=== PATIENT | male | born 1990 | race Caucasian/White ===

== ENCOUNTER 2018-04-01 16:02 | Inpatient (IN) | payer OTHER, SELFPAY ==
[2018-04-01] VITALS (7 sets, daily range): BP systolic 127–160; BP diastolic 75–81; PULSE 90–107; RESP 16–18; TEMP 36.9–40.1; O2SAT 96–99
--- NOTE | 2018-04-01 17:07 | W.ED.GENAD ---
Discharge Plan Disposition [facility] Condition: Serious Discharge Details Chief Complaint: Nausea/Vomit/Diar Clinical Impression: Type I diabetes mellitus, Pneumonia, Elevated troponin, MICHELLE (acute kidney injury) Reason For Visit: PNEUMONIA Admit Date/Time: 04/01/18 20:35 Admit Provider: David Hauser Attending Provider: David Hauser Primary Care Provider: KRISH FORTE ED Provider: Ayaan Boyle Discharge Data Discharge Date/Time-TO BE ENTERED AT DEPARTURE: 04/01/18 21:05 Medical Decision Making MDM Narrative Medical decision making narrative: Presents today with chief complaint of nausea vomiting and cough. Patient reports that he has been vomiting fairly regularly for the past 3 days. On exam, he appears dehydrated, fatigued. He does appear flush was currently afebrile. She is feelings of hot and cold at home. He is tachycardic at 107. Blood pressure is also noted to be elevated at 155/81. Patient reports that he has had elevation in his glucose since the onset of his symptoms. No change in bowel habits. On exam, his lungs are clear bilaterally. He is not tachypneic, no respiratory distress. Abdomen is soft and nondistended. Plan to obtain chest x-ray, laboratory evaluation. Nursing staff will assess glucose fingerstick. We will give IV hydration. Chest x-ray reviewed by radiologist. They advised significant airspace opacity in the lingula. No focal pathology the pleural space, no pneumothorax. Heart is without focal pathology, no cardiomegaly. Mediastinum is unremarkable. Internal fixation of the right clavicle in normal alignment. Advised significant airspace opacity in the lingula most consistent with pneumonia Vital signs are reassessed by nursing staff. At this time, his temp is at 40.1. His glucose is down to 96. Patient will be given 1000 mg of Tylenol. Will obtain blood cultures and then begin the patient on Levaquin. Discussed this with Dr. Simpson There was a delay in the laboratory evaluation secondary to the demands on the lab at the time from large quantities of your patients. However, CBC, CMP, troponin and lipase were obtained. WBC is 11.66 with a neutrophil count of 9.29. Lipase is normal at 83. Sodium is 128. 0.5. BUN Elevated at 46, Creatinine 1.74. Glucose Is 294. Troponin is elevated at 0.08. Will obtain EKG. Patient is asymptomatic for ACS. Concern is may be demand ischemia. EKG reviewed by Dr. Simpson, no acute ischemic changes noted Has received 2 L of fluid, is receiving antibiotics. Patient diagnosed with elevated troponin, pneumonia, acute kidney injury, and elevated glucose with type I diabetes. Plan to consult with the hospitalist regarding admission. Discussed the case with Dr. Holder who agrees to admission. We will continue to monitor the troponin. He feels this likely secondary to demand ischemia. Discussed plan for admission with the patient who voiced understanding and agrees with plan. HPI - General Adult General Mode of arrival: ambulatory. Date/Time Provider Initiated Documentation: 04/01/18 17:03. Limitations to Documentation: no limitations. Information obtained by: patient. HPI Narrative: Patient is a 27-year-old male, with history of diabetes, with chief complaint of nausea and vomiting. Patient reports that he initially began with cough and chest congestion 4 days ago. The following day, he developed nausea and vomiting. Reports that since then he has vomited every 1.5 hours. He denies any fevers or chills. Denies any abdominal pain. Denies any chest pain. Denies any shortness of breath. Reports that occasionally the vomiting seems to be associated with the cough and is having posttussive emesis. However, patient is also endorsing a underlying level of nausea and random episodes of emesis as well. Reports that typically his glucose is running between 1 and 200. States that since being ill it is which had been between 3 and 400. Patient does report that he has been elevated like this historically. Related Data Home Medications Medication Instructions Recorded Confirmed insulin aspart U-100 [Novolog 100 unit SQ pen 02/28/13 Flexpen] insulin glargine [Lantus Solostar] BID 02/28/13 pravastatin 40 mg PO DAILY #1 tab-cap 02/28/13 04/01/18 lisinopril 40 mg PO DAILY 04/01/18 04/01/18 Allergies Allergy/AdvReac Type Severity Reaction Status Date / Time No Known Allergies Allergy Unverified 04/01/18 16:14 General Stated Complaint: Nausea/Vomit/Diar RAMON: 3 Review of Systems Constitutional Reports as per HPI, Reports chills, Reports fatigue, Reports fever(s), Denies headache(s), Reports malaise and Reports poor appetite ENT Denies dysphagia, Denies vertigo, Denies dizziness and Denies headache(s) Cardiovascular Denies chest pain, Denies chest pain at rest, Denies chest pain with activity, Denies rapid heart rate, Denies pedal edema, Denies leg edema, Denies palpitations, Denies dyspnea and Denies dyspnea on exertion Respiratory Reports as per HPI, Reports chest congestion, Reports cough, Denies pain on inspiration, Denies pain with cough, Denies dyspnea, Denies dyspnea on exertion, Denies stridor and Denies wheezing Gastrointestinal Reports as per HPI, Denies abdominal pain, Denies change in bowel habits, Denies dysphagia, Reports nausea, Reports vomiting and Denies hematemesis Genitourinary Denies dysuria, Denies flank pain, Denies testicular mass, Denies testicular pain and Denies urinary frequency (reports that he has noted decreased frequency of urination, feels that this is associated with dehydration. ) Integumentary/Breasts Denies rash Neurologic Denies vertigo, Denies dizziness and Denies headache(s) Endocrine Reports fatigue and Denies palpitations Allergic/Immunologic Denies wheezing [facility] Social History Smoking/Tobacco Use Status: Never Exam Const General: cooperative, no acute distress, well developed, well groomed and ill appearing acutely (appears flushed and fatigued) [facility] Head: normal to inspection, normocephalic and atraumatic Ears: hearing grossly normal bilaterally Mouth: tongue normal and mucous membranes dry (dry) Throat: posterior oropharynx normal Eyes General: appearance normal, both eyes and all related structures Neck Neck: normal visual inspection and no lymphadenopathy Resp Effort & Inspection: normal respiratory effort, able to speak in complete sentences and no respiratory distress Auscultation: clear to auscultation bilaterally, no rales, no rhonchi and no wheezes Cardio Rate: regular rate Rhythm: regular rhythm Heart Sounds: S1 normal and S2 normal GI Inspection: normal to inspection, non-distended and no incisions Palpation: soft, no hepatosplenomegaly, no aortic enlargement, not firm, no guarding, not rigid and nontender Percussion: normal to percussion Auscultation: normal bowel sounds Back/Spine/Pelvis Back: no CVA tenderness Skin General skin exam: no rashes or lesions noted Neuro General: alert, awake and oriented x3 Cognition: normal cognition Speech: speech normal Gait: normal gait Motor: muscle tone normal throughout Extrem General: normal to inspection, no pedal edema, no calf tenderness and normal gait Psych Appearance: grossly normal and well kempt Mental Status: mental status grossly normal Speech and Movement: speech and movement normal Mood: congruent mood Affect: normal affect Course Vital Signs Temperature 36.9 C 04/01/18 16:10 Pulse 107 H 04/01/18 16:10 Respiratory Rate 18 04/01/18 16:10 Blood Pressure 155/81 H 04/01/18 16:10 Pulse Oximetry 96 04/01/18 16:10 Temperature 36.9 C 04/01/18 16:10 Pulse 107 H 04/01/18 16:10 Respiratory Rate 18 04/01/18 16:10 Blood Pressure 155/81 H 04/01/18 16:10 Pulse Oximetry 96 04/01/18 16:10
--- NOTE | 2018-04-01 17:17 | DI.RAD_ITS ---
SYMPTOM/DIAGNOSIS: COUGH PA AND LATERAL CHEST: No priors. Heart size and pulmonary vasculature are within normal limits. There is an air space opacity in the left lingula. The lungs are otherwise clear. No effusions or pneumothoraces are identified. There is a side plate and screws in the right clavicle. There are mild degenerative changes seen in the spine. IMPRESSION: Left lingular pneumonia.
--- NOTE | 2018-04-01 17:20 | ED.GENADUL_ITS ---
Discharge Plan Disposition Patient Disposition: [facility] IN[facility] Condition: Serious Discharge Details Chief Complaint: Nausea/Vomit/Diar Clinical Impression: Type I diabetes mellitus, Pneumonia, Elevated troponin, MICHELLE (acute kidney injury) Reason For Visit: PNEUMONIA Admit Date/Time: 04/01/18 20:35 Admit Provider: David Hauser Attending Provider: David Hauser Primary Care Provider: KRISH FORTE ED Provider: Ayana Boyle Discharge Data Discharge Date/Time-TO BE ENTERED AT DEPARTURE: 04/01/18 21:05 Medical Decision Making MDM Narrative Medical decision making narrative: Presents today with chief complaint of nausea vomiting and cough. Patient reports that he has been vomiting fairly regularly for the past 3 days. On exam , he appears dehydrated, fatigued. He does appear flush was currently afebrile. She is feelings of hot and cold at home. He is tachycardic at 107. Blood pressure is also noted to be elevated at 155/81. Patient reports that he has had elevation in his glucose since the onset of his symptoms. No change in bowel habits. On exam, his lungs are clear bilaterally. He is not tachypneic, no respiratory distress. Abdomen is soft and nondistended. Plan to obtain chest x-ray, laboratory evaluation. Nursing staff will assess glucose fingerstick. We will give IV hydration. Chest x-ray reviewed by radiologist. They advised significant airspace opacity in the lingula. No focal pathology the pleural space, no pneumothorax. Heart is without focal pathology, no cardiomegaly. Mediastinum is unremarkable. Internal fixation of the right clavicle in normal alignment. Advised significant airspace opacity in the lingula most consistent with pneumonia Vital signs are reassessed by nursing staff. At this time, his temp is at 40.1. His glucose is down to 96. Patient will be given 1000 mg of Tylenol. Will obtain blood cultures and then begin the patient on Levaquin. Discussed this with Dr. Simpson There was a delay in the laboratory evaluation secondary to the demands on the lab at the time from large quantities of your patients. However, CBC, CMP, troponin and lipase were obtained. WBC is 11.66 with a neutrophil count of 9.29. Lipase is normal at 83. Sodium is 128. 0.5. BUN Elevated at 46, Creatinine 1.74. Glucose Is 294. Troponin is elevated at 0.08. Will obtain EKG. Patient is asymptomatic for ACS. Concern is may be demand ischemia. EKG reviewed by Dr. Simpson, no acute ischemic changes noted Has received 2 L of fluid, is receiving antibiotics. Patient diagnosed with elevated troponin, pneumonia, acute kidney injury, and elevated glucose with type I diabetes. Plan to consult with the hospitalist regarding admission. Discussed the case with Dr. Holder who agrees to admission. We will continue to monitor the troponin. He feels this likely secondary to demand ischemia. Discussed plan for admission with the patient who voiced understanding and agrees with plan. HPI - General Adult General Mode of arrival: ambulatory . Date/Time Provider Initiated Documentation: 04/01/18 17:03 . Limitations to Documentation: no limitations . Information obtained by: patient . HPI Narrative: Patient is a 27-year-old male, with history of diabetes, with chief complaint of nausea and vomiting. Patient reports that he initially began with cough and chest congestion 4 days ago. The following day, he developed nausea and vomiting. Reports that since then he has vomited every 1.5 hours. He denies any fevers or chills. Denies any abdominal pain. Denies any chest pain. Denies any shortness of breath. Reports that occasionally the vomiting seems to be associated with the cough and is having posttussive emesis. However, patient is also endorsing a underlying level of nausea and random episodes of emesis as well. Reports that typically his glucose is running between 1 and 200. States that since being ill it is which had been between 3 and 400. Patient does report that he has been elevated like this historically. Related Data Home Medications Medication Instructions Recorded Confirmed insulin aspart U-100 [Novolog 100 unit SQ pen 02/28/13 Flexpen] insulin glargine [Lantus Solostar] BID 02/28/13 pravastatin 40 mg PO DAILY #1 tab-cap 02/28/13 04/01/18 lisinopril 40 mg PO DAILY 04/01/18 04/01/18 Allergies Allergy/AdvReac Type Severity Reaction Status Date / Time No Known Allergies Allergy Unverified 04/01/18 16:14 General Stated Complaint: Nausea/Vomit/Diar RAMON: 3 Review of Systems Constitutional Reports as per HPI, Reports chills, Reports fatigue, Reports fever(s), Denies headache(s), Reports malaise and Reports poor appetite ENT Denies dysphagia, Denies vertigo, Denies dizziness and Denies headache(s) Cardiovascular Denies chest pain, Denies chest pain at rest, Denies chest pain with activity, Denies rapid heart rate, Denies pedal edema, Denies leg edema, Denies palpitations, Denies dyspnea and Denies dyspnea on exertion Respiratory Reports as per HPI, Reports chest congestion, Reports cough, Denies pain on inspiration, Denies pain with cough, Denies dyspnea, Denies dyspnea on exertion , Denies stridor and Denies wheezing Gastrointestinal Reports as per HPI, Denies abdominal pain, Denies change in bowel habits, Denies dysphagia, Reports nausea, Reports vomiting and Denies hematemesis Genitourinary Denies dysuria, Denies flank pain, Denies testicular mass, Denies testicular pain and Denies urinary frequency (reports that he has noted decreased frequency of urination, feels that this is associated with dehydration. ) Integumentary/Breasts Denies rash Neurologic Denies vertigo, Denies dizziness and Denies headache(s) Endocrine Reports fatigue and Denies palpitations Allergic/Immunologic Denies wheezing [facility] Social History Smoking/Tobacco Use Status: Never Exam Const General: cooperative, no acute distress, well developed, well groomed and ill appearing acutely (appears flushed and fatigued) [facility] Head: normal to inspection, normocephalic and atraumatic Ears: hearing grossly normal bilaterally Mouth: tongue normal and mucous membranes dry (dry) Throat: posterior oropharynx normal Eyes General: appearance normal, both eyes and all related structures Neck Neck: normal visual inspection and no lymphadenopathy Resp Effort & Inspection: normal respiratory effort, able to speak in complete sentences and no respiratory distress Auscultation: clear to auscultation bilaterally, no rales, no rhonchi and no wheezes Cardio Rate: regular rate Rhythm: regular rhythm Heart Sounds: S1 normal and S2 normal GI Inspection: normal to inspection, non-distended and no incisions Palpation: soft, no hepatosplenomegaly, no aortic enlargement, not firm, no guarding, not rigid and nontender Percussion: normal to percussion Auscultation: normal bowel sounds Back/Spine/Pelvis Back: no CVA tenderness Skin General skin exam: no rashes or lesions noted Neuro General: alert, awake and oriented x3 Cognition: normal cognition Speech: speech normal Gait: normal gait Motor: muscle tone normal throughout Extrem General: normal to inspection, no pedal edema, no calf tenderness and normal gait Psych Appearance: grossly normal and well kempt Mental Status: mental status grossly normal Speech and Movement: speech and movement normal Mood: congruent mood Affect: normal affect Course Vital Signs Temperature 36.9 C 04/01/18 16:10 Pulse 107 H 04/01/18 16:10 Respiratory Rate 18 04/01/18 16:10 Blood Pressure 155/81 H 04/01/18 16:10 Pulse Oximetry 96 04/01/18 16:10 Temperature 36.9 C 04/01/18 16:10 Pulse 107 H 04/01/18 16:10 Respiratory Rate 18 04/01/18 16:10 Blood Pressure 155/81 H 04/01/18 16:10 Pulse Oximetry 96 04/01/18 16:10
[2018-04-01] MEDS: Normal Saline Flush 10 ML SYR IVP (18:10)
--- NOTE | 2018-04-01 18:10 | NUR.NOTE ---
To radiology with camera technician at 1808. PIV placed by MM, labs drawn. Mask applied to patient for recent cough and fever.Nursing Note:
[2018-04-01] MEDS: Normal Saline 1,000 ML 1000 ML IV ×2 (18:15→21:48)
[2018-04-01] MEDS: Ondansetron 4 MG/2 ML VIAL IVP (18:30)
--- NOTE | 2018-04-01 18:52 | DI.VRAD_ITS ---
EXAM: XR Chest, 2 Views CLINICAL HISTORY: 27 years old, male; Signs and symptoms; Cough TECHNIQUE: Frontal and lateral views of the chest. COMPARISON: No relevant prior studies available. FINDINGS: Lungs: Significant airspace opacity in the lingula. Pleural space: No focal pathology. No pneumothorax. Heart: No focal pathology. No cardiomegaly. Mediastinum: Unremarkable. Bones/joints: Internal fixation of the right clavicle in anatomic alignment. IMPRESSION: Significant airspace opacity in the lingula most consistent with pneumonia. Dictated and Authenticated by: Mariah Keller MD. Ordering:ECHO EWING MD
[2018-04-01 19:06] LABS: Abs Immature Grans 0.02 k/cumm (0.0-0.09); Absolute Basophil Count 0.05 k/cumm (0.0-0.2); Absolute Lymphocyte Count 1.13 k/cumm (1.2-3.4); Absolute Monocyte Count 1.17 k/cumm (0.11-0.7); Absolute Neutrophil Count 9.29 k/cumm (1.2-6.7); Basophils % 0.4; HCT 39.8 % (40.0-50.0); HGB 13.3 g/dL (13.5-17.5); Immature Grans % 0.2; Lymphocytes % 9.7; Mean Corp. HGB Concentration 33.4 g/dL (32.0-36.0); Mean Corpuscular Volume 83.8 fL (80-95); Mean Platelet Volume 10.6 fL (8.0-11.0); Neutrophils % 79.7; Platelet Count 243 x1000/uL (130-400); RBC 4.75 m/cumm (4.50-6.00); RBC Distribution Width 12.7 % (11.8-14.1); White Blood Cell Count 11.66 k/cumm (4.4-10.8)
[2018-04-01] MEDS: Acetaminophen 500 MG TAB 1000 MG PO (19:10)
[2018-04-01 19:35] LABS: ALT 45 U/L (12-78); AST 30 U/L (15-37); Albumin 3.4 g/dL (3.4-5.0); Alkaline Phosphatase 83 U/L (46-116); Anion Gap 11.5 mmol/L (3-11); BUN 46 mg/dL (7-18); Bilirubin, Total 0.7 mg/dL (0.2-1.0); CO2 25.5 mmol/L (21.0-32.0); CREATININE 1.74 mg/dL (0.70-1.30); Calcium 8.7 mg/dL (8.5-10.1); Chloride 91 mmol/L (98-107); Estimated GFR 48.05 (mL/min/1.73m2); Glucose 294 mg/dL (70-100); Potassium 4.1 mmol/L (3.5-5.1); Sodium 128 mmol/L (136-145); Total Protein 7.8 g/dL (6.4-8.2)
[2018-04-01 19:39] LABS: Lipase 83 U/L (73-393); Magnesium 1.7 mg/dL (1.8-2.4)
[2018-04-01 19:43] LABS: Troponin I 0.08 ng/mL (0.00-0.06)
[2018-04-01 19:50] LABS: Bilirubin Negative (Negative); Blood Moderate (Negative); Clarity Clear; Glucose 500 mg/dL (Negative); Ketones 40 mg/dL (Negative); Leukocyte Esterase Negative (Negative); Nitrite Negative (Negative); Urobilinogen 0.2 EU/dL (Up TO 0.2); pH 5.5 (5-8)
[2018-04-01 20:24] LABS: Bacteria Rare HPF (Negative); Epithelial Cells Few HPF (Negative); Mucus Trace (Negative); WBC 0-2 HPF (0-5)
[2018-04-01] MEDS: LEVOFLOXACIN 750 MG/150 ML BAG 150 MG IVPB (20:24)
[2018-04-01 20:25] LABS: C & S Indicated? No; Casts 0-2 Hyaline LPF (Negative)
--- NOTE | 2018-04-01 20:44 | W.PM.HP.N ---
Date of service: 04/01/18 Time of Service: 20:45 Assessment and Plan (1) Pneumonia: Current visit: Yes Status: Acute Evidence of opacity by chest xray consistent with pneumonia, in patient with subjective and documented fevers, respiratory symptoms, leukocytosis, hyperglycemia, and recent ill contacts. Patient reports no recent antibiotic use or hospitalizations. Start Levaquin - despite MICHELLE creatinine clearance is still calculated at full antibiotic dosing. Continue IVFs, check blood and sputum culture, and monitor closely. (2) Elevated troponin: Current visit: Yes Status: Acute Minimal elevation in troponin - EKG reviewed and non-ischemic. Patient also asymptomatic. May be demand ischemia in setting of acute illness and lack of clearance due to MICHELLE. Will rule out with serial cardiac biomarkers, maintain on telemetry, and check ECHO in the morning. Monitor symptoms closely. (3) Type I diabetes mellitus: Current visit: Yes Status: Chronic Elevated blood sugars in the setting of acute febrile illness. Continue basal insulin and initiate sliding scale coverage. ADA diet. Monitor blood sugars closely and adjust insulin as needed. (4) Dyslipidemia: Current visit: Yes Status: Chronic Continue statin therapy. (5) Hypertension: Current visit: Yes Status: Chronic Hold RAMEZ-I in setting of MICHELLE. Monitor blood pressure. (6) Hyponatremia: Current visit: Yes Status: Acute Initial value of 128, corrected to 133. Along with hypochloremia, elevated BUN and creatinine, as well as history of decreased oral intake and fevers likely represents hypovolemic hyponatremia. Hydrate and monitor sodium. (7) MICHELLE (acute kidney injury): Current visit: Yes Status: Acute Along with hypochloremia, elevated BUN and creatinine, as well as history of decreased oral intake and fevers likely represents prerenal etiology / dehydration. Continue IVFs and monitor creatinine and renal panel closely. (8) DVT prophylaxis: Current visit: Yes Status: Acute SC Heparin. History of Present Illness Chief Complaint: Fever, Cough Narrative: 27 year gentleman with a PMHx significant for Type I DM, not well controlled, who presents to [facility] emergency department with complaints of fever and cough. Mr. Grant reportedly began having symptoms of a 'chest cold' 2 days ago, which then progressed to include a worsening cough, subjective fevers and chills, nausea with concurrent vomiting. Further questioning also revealed elevated blood sugars at home and decreased oral intake. Work-up in the emergency department showed evidence of a pneumonia by chest x-ray, elevated creatinine, and a mild leukocytosis. The patient also had evidence of mild hyponatremia (corrected to 133) and hypochloremia, along with an elevated BUN to Creatinine ratio. His Troponin was mildly elevated at 0.08. Given the above findings decision was made to admit the patient for further evaluation and treatment. Review of Systems Constitutional Reports as per HPI, Reports chills, Reports fatigue, Reports fever(s) and Reports malaise Cardiovascular Reports chest pain (Chest Pain with coughing only), Reports diaphoresis, Denies rapid heart rate, Denies edema, Denies irregular heart rhythm and Denies leg edema Respiratory Reports cough and Denies hemoptysis Gastrointestinal Reports abdominal pain (Attributed to cough), Reports nausea and Reports vomiting Genitourinary Denies difficulty urinating and Denies dysuria Endocrine Reports fatigue PFSH Social History Smoking/Tobacco Use Status: Never Meds Home Medications Medication Instructions Recorded Confirmed Type insulin aspart U-100 [Novolog 100 unit SQ pen 02/28/13 History Flexpen] insulin glargine [Lantus Solostar] BID 02/28/13 History pravastatin 40 mg PO DAILY #1 tab-cap 02/28/13 04/01/18 History lisinopril 40 mg PO DAILY 04/01/18 04/01/18 History Allergies Allergy/AdvReac Type Severity Reaction Status Date / Time No Known Allergies Allergy Unverified 04/01/18 16:14 Exam Const General: cooperative and ill appearing Orientation: oriented x3, oriented to person, oriented to place and oriented to time Neck Neck: supple Resp Effort & Inspection: normal respiratory effort and cough Auscultation: clear to auscultation bilaterally Cardio Rate: tachycardic Heart Sounds: S1 normal, S2 normal, no gallops, no murmurs and no rubs GI Inspection: normal to inspection Palpation: soft, not firm, not rigid and nontender Auscultation: normal bowel sounds Neuro General: alert, awake, oriented x3 and CN's II-XI intact bilaterally Extrem General: no edema Results Imaging Chest x-ray: report reviewed Imaging Studies: EXAM: XR Chest, 2 Views CLINICAL HISTORY: 27 years old, male; Signs and symptoms; Cough TECHNIQUE: Frontal and lateral views of the chest. COMPARISON: No relevant prior studies available. FINDINGS: Lungs: Significant airspace opacity in the lingula. Pleural space: No focal pathology. No pneumothorax. Heart: No focal pathology. No cardiomegaly. Mediastinum: Unremarkable. Bones/joints: Internal fixation of the right clavicle in anatomic alignment. IMPRESSION: Significant airspace opacity in the lingula most consistent with pneumonia. Labs : 04/01/18 18:10 04/01/18 18:10 Laboratory Results - last 24 hr 04/01/18 04/01/18 04/01/18 18:10 18:10 18:10 WBC 11.66 H RBC 4.75 Hgb 13.3 L Hct 39.8 L MCV 83.8 MCH 28.0 MCHC 33.4 RDW 12.7 Plt Count 243 MPV 10.6 Immature Gran % 0.2 Neutrophils % 79.7 Lymphocytes % 9.7 Monocytes % 10.0 Eosinophils % 0.0 Basophils % 0.4 Absolute Neutrophils 9.29 H Absolute Lymphocytes 1.13 L Absolute Monocytes 1.17 H Absolute Eosinophils 0.00 Absolute Basophils 0.05 Sodium 128 L Potassium 4.1 Chloride 91 L Carbon Dioxide 25.5 Anion Gap 11.5 H BUN 46 H Creatinine 1.74 H Estimated GFR/1.73 m2 48.05 Glucose 294 H Calcium 8.7 Magnesium 1.7 L Total Bilirubin 0.7 AST 30 ALT 45 Alkaline Phosphatase 83 Troponin I 0.08 H Total Protein 7.8 Albumin 3.4 Lipase 83 Urine Color Urine Clarity Urine pH Ur Specific [place] Urine Protein Urine Ketones Urine Blood Urine Nitrite Urine Bilirubin Urine Urobilinogen Ur Leukocyte Esterase Urine RBC Urine WBC Ur Epithelial Cells Urine Crystals Urine Bacteria Urine Casts Urine Mucus Ur Culture Indicated? Urine Glucose 04/01/18 19:35 WBC RBC Hgb Hct MCV MCH MCHC RDW Plt Count MPV Immature Gran % Neutrophils % Lymphocytes % Monocytes % Eosinophils % Basophils % Absolute Neutrophils Absolute Lymphocytes Absolute Monocytes Absolute Eosinophils Absolute Basophils Sodium Potassium Chloride Carbon Dioxide Anion Gap BUN Creatinine Estimated GFR/1.73 m2 Glucose Calcium Magnesium Total Bilirubin AST ALT Alkaline Phosphatase Troponin I Total Protein Albumin Lipase Urine Color Yellow Urine Clarity Clear Urine pH 5.5 Ur Specific [place] 1.010 Urine Protein 30 H Urine Ketones 40 H Urine Blood Moderate H Urine Nitrite Negative Urine Bilirubin Negative Urine Urobilinogen 0.2 Ur Leukocyte Esterase Negative Urine RBC 3-5 H Urine WBC 0-2 Ur Epithelial Cells Few Urine Crystals Urine Bacteria Rare Urine Casts 0-2 hyaline Urine Mucus Trace Ur Culture Indicated? No Urine Glucose 500 H
[2018-04-01] MEDS: Normal Saline 1,000 ML 150 ML IV (22:37)
[2018-04-01] MEDS: Heparin 5,000 UNITS/ML VIAL 5000 UNITS SC (22:37)
[2018-04-01] MEDS: MAGNESIUM SULFATE 1 GM/100 ML BAG IVPB (22:37)
[2018-04-01 22:50] LABS: Troponin I 0.12 ng/mL (0.00-0.06)
[2018-04-01] MEDS: Insulin Glargine 300 UNITS/3 ML PEN 30 UNITS SC (23:43)
[2018-04-02] VITALS (14 sets, daily range): BP systolic 128–158; BP diastolic 66–97; PULSE 80–96; RESP 15–24; TEMP 37.1–39.5; O2SAT 94–98
[2018-04-02] MEDS: Acetaminophen 325 MG TAB PO ×4 (03:30→19:22)
[2018-04-02] MEDS: Heparin 5,000 UNITS/ML VIAL 5000 UNITS SC ×3 (05:48→21:40)
[2018-04-02 06:59] LABS: Abs Immature Grans 0.02 k/cumm (0.0-0.09); Absolute Basophil Count 0.04 k/cumm (0.0-0.2); Absolute Lymphocyte Count 1.26 k/cumm (1.2-3.4); Absolute Monocyte Count 1.06 k/cumm (0.11-0.7); Basophils % 0.4; HCT 37.4 % (40.0-50.0); HGB 12.8 g/dL (13.5-17.5); Immature Grans % 0.2; Lymphocytes % 11.4; Mean Corp. HGB Concentration 34.2 g/dL (32.0-36.0); Mean Corpuscular Hemoglobin 28.7 pg (27.0-33.0); Mean Corpuscular Volume 83.9 fL (80-95); Mean Platelet Volume 10.4 fL (8.0-11.0); Monocytes % 9.6; Neutrophils % 78.4; Platelet Count 223 x1000/uL (130-400); RBC 4.46 m/cumm (4.50-6.00); RBC Distribution Width 12.6 % (11.8-14.1); White Blood Cell Count 11.06 k/cumm (4.4-10.8)
[2018-04-02 07:01] LABS: Absolute Neutrophil Count 8.67 k/cumm (1.2-6.7)
[2018-04-02 07:09] LABS: Anion Gap 12.4 mmol/L (3-11); BUN 39 mg/dL (7-18); CO2 22.6 mmol/L (21.0-32.0); CREATININE 1.67 mg/dL (0.70-1.30); Calcium 8.1 mg/dL (8.5-10.1); Chloride 97 mmol/L (98-107); Estimated GFR 50.38 (mL/min/1.73m2); Glucose 317 mg/dL (70-100); Potassium 4.3 mmol/L (3.5-5.1); Sodium 132 mmol/L (136-145)
[2018-04-02 07:22] LABS: Troponin I 0.28 ng/mL (0.00-0.06)
--- NOTE | 2018-04-02 07:30 | MERGE_ITS ---
*[facility]* *[facility]* [address] [place] [address] Date of study: 04/02/2018 Transthoracic Echocardiography M-mode, complete 2D, complete spectral Doppler, and color Doppler *STUDY CONCLUSIONS* Summary: 1. Left ventricle: The cavity size was normal. Wall thickness was normal. Systolic function was normal. The estimated ejection fraction was 60-65%. Wall motion was normal; there were no regional wall motion abnormalities. Diastolic parameters were normal. 2. Right ventricle: The cavity size was normal. Wall thickness was normal. Systolic function was normal. *PATIENT PRESENTATION* Height: 172.7cm ((68in) ) S/D Pressure: 145 / 81 Weight: 103.9kg ((228.5lb) ) BSA: 2.27m^2 Test start time: 07:40 AM. Test stop time: 08:50 AM. PERFORMING Unknown ORDERING David Hauser REFERRING David Hauser PERFORMING [facility] ARCHIVIST ECONOMIC HISTORY RT Rober (Sina)(STAR), CATHI *PROCEDURE DATA* Procedure information: The patient was identified by two identifiers. This study was interpreted by [facility]. Pertinent images and digital data are archived for permanent storage and are available for subsequent review. No prior study was available for comparison. Study status: STAT. Transthoracic echocardiography. M-mode, complete 2D, complete spectral Doppler, and color Doppler. A Transthoracic Echocardiogram was performed. Scanning was performed from the parasternal, apical, subcostal, and suprasternal notch acoustic windows. Images were obtained using an [id number] cardiac ultrasound machine. Image quality was adequate. Study completion: The patient tolerated the procedure well. There were no complications. *CARDIAC ANATOMY* Left ventricle: The cavity size was normal. Wall thickness was normal. Systolic function was normal. The estimated ejection fraction was 60-65%. Wall motion was normal; there were no regional wall motion abnormalities. Diastolic parameters were normal. Aortic valve: Trileaflet; normal thickness leaflets. Mobility was not restricted. Doppler: Transvalvular velocity was within the normal range. There was no stenosis. There was no significant regurgitation. VTI ratio of LVOT to aortic valve: 0.94. Valve area (VTI): 2.9cm^2. Indexed valve area (VTI): 1.3cm^2/m^2. Peak velocity ratio of LVOT to aortic valve: 0.85. Valve area (Vmax): 2.7cm^2. Indexed valve area (Vmax): 1.2cm^2/m^2. Mean velocity ratio of LVOT to aortic valve: 0.88. Valve area (Vmean): 2.7cm^2. Indexed valve area (Vmean): 1.2cm^2/m^2. Mean gradient (S): 9.5mm Hg. Peak gradient (S): 15mm Hg. Aorta: Aortic root: The aortic root was normal in size. Ascending aorta: The ascending aorta was normal in size. Mitral valve: Structurally normal valve. Mobility was not restricted. Doppler: Transvalvular velocity was within the normal range. There was no evidence for stenosis. There was trivial regurgitation. Valve area by pressure half-time: 5.5cm^2. Indexed valve area by pressure half-time: 2.4cm^2/m^2. Peak gradient (D): 4.9mm Hg. Left atrium: The atrium was normal in size. Right ventricle: The cavity size was normal. Wall thickness was normal. Systolic function was normal. Pulmonic valve: Structurally normal valve. Doppler: Transvalvular velocity was within the normal range. There was no evidence for stenosis. There was no significant regurgitation. Peak gradient (S): 6.7mm Hg. Tricuspid valve: Structurally normal valve. Doppler: Transvalvular velocity was within the normal range. There was no evidence for stenosis. There was trivial regurgitation. Pulmonary artery: Pulmonary systolic pressure was within the normal range, in the range of 30mm Hg to 35mm Hg. Right atrium: The atrium was normal in size. Pericardium: There was no pericardial effusion. Systemic veins: Inferior vena cava: Well visualized. The vessel was patent and normal in size. The respirophasic diameter changes were in the normal range (greater than or equal to 50%). Baseline ECG: Normal sinus rhythm. Measurements Left ventricle Value Reference LV ID, ED, PLAX 5.3 cm 3.5 - 6.0 LV ID, ES, PLAX 3.6 cm 2.1 - 4.0 LV PW thickness, ED, PLAX 0.9 cm LV end-diastolic volume, 1-p A2C 94 ml LV ejection fraction, 1-p A2C 61 % LV end-diastolic volume, 1-p A4C 118 ml LV ejection fraction, 1-p A4C 61 % LV e', lateral 0.121 m/sec LV E/e', lateral 9 LV e', medial 0.084 m/sec LV E/e', medial 13 LV e', average 0.103 m/sec LV E/e', average 11 Ventricular septum Value Reference IVS thickness, ED, PLAX 1.0 cm LVOT Value Reference LVOT ID, A-P 2.0 cm LVOT area 3.1 cm^2 LVOT peak velocity, S 1.65 m/sec LVOT mean velocity, S 1.3 m/sec LVOT VTI, S 34.6 cm LVOT peak gradient, S 10.9 mm Hg LVOT mean gradient, S 7.3 mm Hg Stroke volume (SV), LVOT DP 108 ml Stroke index (SV/bsa), LVOT DP 47 ml/m^2 Aortic valve Value Reference Aortic valve peak velocity, S 1.9 m/sec Aortic valve mean velocity, S 1.47 m/sec Aortic valve VTI, S 36.7 cm Aortic mean gradient, S 9.5 mm Hg Aortic peak gradient, S 15 mm Hg VTI ratio, LVOT/AV 0.94 Aortic valve area, VTI 2.9 cm^2 Velocity ratio, peak, LVOT/AV 0.85 Aortic valve area, peak velocity 2.7 cm^2 Velocity ratio, mean, LVOT/AV 0.88 Aortic valve area, mean velocity 2.7 cm^2 Aortic valve area/bsa, mean velocity 1.2 cm^2/m^2 Aorta Value Reference Aortic root ID, ED 3.3 cm Ascending aorta ID, A-P, S 2.9 cm RVOT Value Reference RVOT VTI, S 16.4 cm Left atrium Value Reference LA ID, A-P, ES 3.6 cm LA ID/bsa, A-P 1.6 cm/m^2 <=2.2 LA area, ES, A4C 16.5 cm^2 8.8 - 23.4 LA area, ES, A2C 14 cm^2 LA volume/bsa, ES, 1-p A4C 21 ml/m^2 LA volume, ES, 2-p 36 ml LA volume/bsa, ES, 2-p 16 ml/m^2 LA/aortic root ratio 1.07 Mitral valve Value Reference Mitral E-wave peak velocity 1.11 m/sec Mitral A-wave peak velocity 0.75 m/sec Mitral deceleration time (L) 138 ms 150 - 230 Mitral pressure half-time 40 ms Mitral peak gradient, D 4.9 mm Hg Mitral E/A ratio, peak 1.48 Mitral valve area, PHT, DP 5.5 cm^2 Pulmonary veins Value Reference Pulmonary vein peak velocity, S 0.51 m/sec Pulmonary vein peak velocity, D 0.68 m/sec Pulmonary vein velocity ratio, peak, 0.75 S/D Tricuspid valve Value Reference Tricuspid regurg peak velocity 2.9 m/sec Tricuspid peak RV-RA gradient 34.4 mm Hg Right atrium Value Reference RA area, ES, A4C 12.4 cm^2 8.3 - 19.5 Pulmonic valve Value Reference Pulmonic peak gradient, S 6.7 mm Hg Legend: (L) and (H) emanuel values outside specified reference range. I have personally reviewed the images and have reviewed and edited the reported findings. Electronically signed by Niko Martinez 04/02/2018 11:47
[2018-04-02] MEDS: Normal Saline Flush 10 ML SYR IVP (09:24)
[2018-04-02] MEDS: Pravastatin 40 MG TAB PO (09:24)
[2018-04-02] MEDS: Insulin Glargine 300 UNITS/3 ML PEN 30 UNITS SC ×2 (09:28→20:27)
[2018-04-02] MEDS: Metoclopramide 10 MG/2 ML VIAL IVP (10:08)
[2018-04-02] MEDS: Insulin Aspart 300 UNITS/3 ML PEN SC ×4 (10:13→17:08)
--- NOTE | 2018-04-02 14:21 | DM INPTCON_ITS ---
DESCRIPTION/ASSESSMENT: Appreciate diabetes consult for Mr. Grant who is hospitalized with Pneumonia. He has type 1 diabetes currently treated with 30u Lantus twice daily and moderate insulin correction. BMI 35 No current A1c available but 1 year ago it was 7.6. Visited with him briefly to assess his mealtime insulin regimen. States he takes 1 unit for 5 grams carbohydrate in addition to insulin correction that I did not clarify with him. INTERVENTION: Suggest insulin:carb with meals at 1 unit covers 5 grams to prevent food induced hyperglycemia. Will f/u tomorrow when he is feeling better. PLAN: Will follow blood sugars
[2018-04-02 14:29] LABS: Troponin I 0.31 ng/mL (0.00-0.06)
--- NOTE | 2018-04-02 14:36 | PGE_ITS ---
Date of service: 04/02/18 Time of Service: 14:34 Assessment and Plan (1) Pneumonia: Current visit: Yes Status: Acute Patient has evidence of a left lingular pneumonia. He remains febrile this afternoon with a temperature of 38.5. However he is only received 1 dose of Levaquin 750 mg IV last night. He is scheduled for his next dose of Levaquin at 8:00 tonight. He continues to have elevated troponin levels although they have not reached the threshold for myocardial infarction. His EKGs are more suggestive of a pericarditis. His echocardiogram showed normal left ventricular function and no pericardial effusion. We will continue to treat the patient with IV Levaquin along with as needed aerosolized bronchodilators and pulmonary toiletry with Acapella and incentive spirometry Patient indicated to me that he has not had a Pneumovax vaccine. I think before he leaves the hospital he should receive Prevnar followed by Pneumovax in 6-12 months. (2) Elevated troponin: Current visit: Yes Status: Acute I suspect that the patient either has pericarditis associated with his pneumonia or he may have a myocarditis. In either case his left ventricular function is normal. I will continue to trend out his troponins until they have plateaued and are declining. (3) MICHELLE (acute kidney injury): Current visit: Yes Status: Acute His acute kidney injury appears to be improving with IV fluid hydration. His creatinine is now back to his baseline of 1.6. (4) Hyponatremia: Current visit: Yes Status: Acute His hyponatremia is improving with IV fluid hydration. He remains on normal saline at 150 mL/h (5) Type I diabetes mellitus: Current visit: Yes Status: Chronic Blood sugars remain elevated running between 220-270. JADEN Morales, recommended adding an insulin to carb ratio coverage 1-5 to treat hyperglycemia associated with meal coverage. He is currently on Lantus 30 units twice a day for basal insulin coverage along with moderate dose NovoLog sliding scale to treat elevated blood sugars. (6) Hypertension: Current visit: Yes Status: Chronic Patient was previously on lisinopril 40 mg daily however this is been held because of his acute renal insufficiency. His blood pressures have not been elevated today. I will continue to withhold his lisinopril until we see where his new baseline creatinine settles out. Once he is well hydrated we can restart his lisinopril (7) Dyslipidemia: Current visit: Yes Status: Chronic Patient's pravastatin has been resumed (8) DVT prophylaxis: Current visit: Yes Status: Acute Continue subcutaneous heparin for DVT prophylaxis until the patient is more physically active and ambulatory Subjective Patient reports: nausea and fever; denies shortness of breath Interval history since last seen: Patient is a 27-year-old male with type 1 diabetes mellitus who presented to the emergency department with productive cough and fever and chills along with nausea and vomiting. Onset of symptoms was last Monday which was 3 days ago after being exposed to some friends who had been ill with respiratory symptoms. Workup last night included chest x-ray that showed a left lingular pneumonia. Laboratory studies showed acute on chronic renal insufficiency with elevated creatinine 1.74 which has since been declining down to 1.67 with IV fluid hydration. His baseline creatinine is 1.6 from 2015. Furthermore he was found to have an elevated troponin level of 0.08 on admission and his since risen up to 0.31 this afternoon. EKG on admission showed sinus tachycardia rate of 100 bpm with nonspecific intraventricular conduction delay and diffuse ST repolarization changes and mild diffusely depressed TX intervals. In AVR there were reciprocal changes including TX elevation and T-wave inversion. Blood cultures were obtained and the patient was placed on IV Levaquin. Patient states that he is feeling somewhat better today and that his shortness of breath is improved and his cough is improved. However he still running a fever today up to 38.5 this afternoon. His temp was as high as 40.1 last night. Echocardiogram was performed today and showed normal left ventricular size and normal left ventricular systolic function with an ejection fraction of 60-65%. There is no pericardial effusion. Exam Const General: cooperative, well developed and ill appearing acutely Nutritional Appearance: average body habitus Orientation: alert, awake and oriented x3 Neck Neck: normal visual inspection, full ROM, no lymphadenopathy and no JVD Carotids: normal carotid upstroke Resp Effort & Inspection: normal respiratory effort and able to speak in complete sentences Auscultation: bronchovesicular breath sounds bilaterally and crackles bilaterally Cardio Jugular venous pressure: no JVD Palpation: normal PMI Rate: regular rate Rhythm: regular rhythm Heart Sounds: S1 normal, S2 normal, no gallops, no murmurs and no rubs Bruits: no abdominal aortic bruits and no carotid bruits GI Inspection: normal to inspection Palpation: soft, no hepatosplenomegaly and no guarding Percussion: normal to percussion Auscultation: normal bowel sounds Rectal Exam: deferred Neuro General: alert, awake, oriented x3 and moves all extremities Cognition: normal cognition Speech: speech normal Motor: muscle tone normal throughout and strength 5/5 throughout Extrem General: normal to inspection, full ROM, normal capillary refill and no clubbing , cyanosis or edema Psych Appearance: grossly normal Mental Status: mental status grossly normal Speech and Movement: speech and movement normal Mood: congruent mood Affect: normal affect Attitude: cooperative Thought Process: normal Thought Content: normal Insight: insight good Judgment: judgment good Objective Objective Clinical Data: Abnormal lab results 04/01/18 04/01/18 04/01/18 Range/Units 18:10 18:10 18:10 WBC 11.66 H (4.4-10.8) k/cumm RBC (4.50-6.00) m/cumm Hgb 13.3 L (13.5-17.5) g/dL Hct 39.8 L (40.0-50.0) % Absolute Neutrophils 9.29 H (1.2-6.7) k/cumm Absolute Lymphocytes 1.13 L (1.2-3.4) k/cumm Absolute Monocytes 1.17 H (0.11-0.7) k/cumm Sodium 128 L (136-145) mmol/L Chloride 91 L (98-107) mmol/L Anion Gap 11.5 H (3-11) mmol/L BUN 46 H (7-18) mg/dL Creatinine 1.74 H (0.70-1.30) mg/dL Glucose 294 H (70-100) mg/dL Calcium (8.5-10.1) mg/dL Magnesium 1.7 L (1.8-2.4) mg/dL Troponin I 0.08 H (0.00-0.06) ng/mL Urine Protein (Negative) mg/dL Urine Ketones (Negative) mg/dL Urine Blood (Negative) Urine RBC (0-2) Urine Glucose (Negative) mg/dL 04/01/18 04/01/18 04/02/18 Range/Units 19:35 22:20 06:20 WBC (4.4-10.8) k/cumm RBC (4.50-6.00) m/cumm Hgb (13.5-17.5) g/dL Hct (40.0-50.0) % Absolute Neutrophils (1.2-6.7) k/cumm Absolute Lymphocytes (1.2-3.4) k/cumm Absolute Monocytes (0.11-0.7) k/cumm Sodium (136-145) mmol/L Chloride (98-107) mmol/L Anion Gap (3-11) mmol/L BUN (7-18) mg/dL Creatinine (0.70-1.30) mg/dL Glucose (70-100) mg/dL Calcium (8.5-10.1) mg/dL Magnesium (1.8-2.4) mg/dL Troponin I 0.12 H 0.28 H (0.00-0.06) ng/mL Urine Protein 30 H (Negative) mg/dL Urine Ketones 40 H (Negative) mg/dL Urine Blood Moderate H (Negative) Urine RBC 3-5 H (0-2) Urine Glucose 500 H (Negative) mg/dL 04/02/18 04/02/18 04/02/18 Range/Units 06:20 06:20 14:06 WBC 11.06 H (4.4-10.8) k/cumm RBC 4.46 L (4.50-6.00) m/cumm Hgb 12.8 L (13.5-17.5) g/dL Hct 37.4 L (40.0-50.0) % Absolute Neutrophils 8.67 H (1.2-6.7) k/cumm Absolute Lymphocytes (1.2-3.4) k/cumm Absolute Monocytes 1.06 H (0.11-0.7) k/cumm Sodium 132 L (136-145) mmol/L Chloride 97 L (98-107) mmol/L Anion Gap 12.4 H (3-11) mmol/L BUN 39 H (7-18) mg/dL Creatinine 1.67 H (0.70-1.30) mg/dL Glucose 317 H (70-100) mg/dL Calcium 8.1 L (8.5-10.1) mg/dL Magnesium (1.8-2.4) mg/dL Troponin I 0.31 H (0.00-0.06) ng/mL Urine Protein (Negative) mg/dL Urine Ketones (Negative) mg/dL Urine Blood (Negative) Urine RBC (0-2) Urine Glucose (Negative) mg/dL Vital Signs Temp 37.1 C 04/02/18 11:20 Pulse 96 H 04/02/18 11:20 Resp 22 04/02/18 11:20 BP 128/72 04/02/18 11:20 Pulse Ox 94 L 04/02/18 11:20 Intake & Output 04/01/18 04/02/18 04/02/18 23:59 11:59 23:59 Intake Total 1130 / 1130 0 / 0 Balance 1130 / 1130 0 / 0 Weight 104.326 kg Intake: IV Oral 1120 / 1120 0 / 0 Other: Stool Characteristics Formed Emesis Description Bile Voiding Methods Toilet Laboratory Results WBC 11.06 k/cumm (4.4-10.8) H 04/02/18 06:20 RBC 4.46 m/cumm (4.50-6.00) L 04/02/18 06:20 Hgb 12.8 g/dL (13.5-17.5) L 04/02/18 06:20 Hct 37.4 % (40.0-50.0) L 04/02/18 06:20 MCV 83.9 fL (80-95) 04/02/18 06:20 MCH 28.7 pg (27.0-33.0) 04/02/18 06:20 MCHC 34.2 g/dL (32.0-36.0) 04/02/18 06:20 RDW 12.6 % (11.8-14.1) 04/02/18 06:20 Plt Count 223 x1000/uL (130-400) 04/02/18 06:20 MPV 10.4 fL (8.0-11.0) 04/02/18 06:20 Immature Gran % 0.2 04/02/18 06:20 Neutrophils % 78.4 04/02/18 06:20 Lymphocytes % 11.4 04/02/18 06:20 Monocytes % 9.6 04/02/18 06:20 Eosinophils % 0.0 04/02/18 06:20 Basophils % 0.4 04/02/18 06:20 Absolute Neutrophils 8.67 k/cumm (1.2-6.7) H 04/02/18 06:20 Absolute Lymphocytes 1.26 k/cumm (1.2-3.4) 04/02/18 06:20 Absolute Monocytes 1.06 k/cumm (0.11-0.7) H 04/02/18 06:20 Absolute Eosinophils 0.00 k/cumm (0.0-0.7) 04/02/18 06:20 Absolute Basophils 0.04 k/cumm (0.0-0.2) 04/02/18 06:20 Sodium 132 mmol/L (136-145) L 04/02/18 06:20 Potassium 4.3 mmol/L (3.5-5.1) 04/02/18 06:20 Chloride 97 mmol/L (98-107) L 04/02/18 06:20 Carbon Dioxide 22.6 mmol/L (21.0-32.0) 04/02/18 06:20 Anion Gap 12.4 mmol/L (3-11) H 04/02/18 06:20 BUN 39 mg/dL (7-18) H 04/02/18 06:20 Creatinine 1.67 mg/dL (0.70-1.30) H 04/02/18 06:20 Estimated GFR/1.73 m2 50.38 (mL/min/1.73m2) 04/02/18 06:20 Glucose 317 mg/dL (70-100) H 04/02/18 06:20 Calcium 8.1 mg/dL (8.5-10.1) L 04/02/18 06:20 Magnesium 1.7 mg/dL (1.8-2.4) L 04/01/18 18:10 Total Bilirubin 0.7 mg/dL (0.2-1.0) 04/01/18 18:10 AST 30 U/L (15-37) 04/01/18 18:10 ALT 45 U/L (12-78) 04/01/18 18:10 Alkaline Phosphatase 83 U/L (46-116) 04/01/18 18:10 Troponin I 0.31 ng/mL (0.00-0.06) H 04/02/18 14:06 Total Protein 7.8 g/dL (6.4-8.2) 04/01/18 18:10 Albumin 3.4 g/dL (3.4-5.0) 04/01/18 18:10 Lipase 83 U/L (73-393) 04/01/18 18:10 Urine Color Yellow (Yellow) 04/01/18 19:35 Urine Clarity Clear 04/01/18 19:35 Urine pH 5.5 (5-8) 04/01/18 19:35 Ur Specific [place] 1.010 (1.005-1.025) 04/01/18 19:35 Urine Protein 30 mg/dL (Negative) H 04/01/18 19:35 Urine Ketones 40 mg/dL (Negative) H 04/01/18 19:35 Urine Blood Moderate (Negative) H 04/01/18 19:35 Urine Nitrite Negative (Negative) 04/01/18 19:35 Urine Bilirubin Negative (Negative) 04/01/18 19:35 Urine Urobilinogen 0.2 EU/dL (Up TO 0.2) 04/01/18 19:35 Ur Leukocyte Esterase Negative (Negative) 04/01/18 19:35 Urine RBC 3-5 (0-2) H 04/01/18 19:35 Urine WBC 0-2 HPF (0-5) 04/01/18 19:35 Ur Epithelial Cells Few HPF (Negative) 04/01/18 19:35 Urine Crystals HPF (Negative) 04/01/18 19:35 Urine Bacteria Rare HPF (Negative) 04/01/18 19:35 Urine Casts 0-2 hyaline LPF (Negative) 04/01/18 19:35 Urine Mucus Trace (Negative) 04/01/18 19:35 Ur Culture Indicated? No 04/01/18 19:35 Urine Glucose 500 mg/dL (Negative) H 04/01/18 19:35 Objective Narrative Objective Narrative: Date of study: 04/02/2018 Transthoracic Echocardiography M-mode, complete 2D, complete spectral Doppler, and color Doppler *STUDY CONCLUSIONS* Summary: 1. Left ventricle: The cavity size was normal. Wall thickness was normal. Systolic function was normal. The estimated ejection fraction was 60-65%. Wall motion was normal; there were no regional wall motion abnormalities. Diastolic parameters were normal. 2. Right ventricle: The cavity size was normal. Wall thickness was normal. Systolic function was normal.
--- NOTE | 2018-04-02 15:50 | PDOC.CMIN ---
Care Management Initial Assess REASON FOR HOSPITALIZATION:: Pneumonia PAST MEDICAL HISTORY/PAST SURGICAL HISTORY:: Type 1 DM; insulin dependent. PREVIOUS FUNCTIONAL STATUS/SOCIAL/FAMILY SUPPORTS:: Suhail resides in [place], [place] with his significant other. 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 He is independent with all ADLs in the community and does not anticipate additional supports upon discharge. CURRENT FUNCTIONAL STATUS:: Suhail is sitting up in his chair when meets with him, he answers questions but is not overly forthcoming with information and presents with low affect. He reports feeling lousy and states he was told this was a bad case of pneumonia. He states the onset of symptoms started Monday night. ADVANCE DIRECTIVES:: [facility] Has patient been provided with information about the portal?: No Did the patient sign up for the portal?: No CODE STATUS:: Full Code INSURANCE COVERAGE / FINANCIAL ISSUES:: [employer] CURRENT HOME/COMMUNITY SERVICES/EQUIPMENT:: Diabetic supplies. PRIMARY CARE PHYSICIAN:: Suhail Hauser; [facility]. POTENTIAL DISCHARGE NEEDS:: Follow up appointment with PCP. PATIENT/FAMILY EDUCATION NEEDS:: Review discharge instructions, discuss Ask Me Three. ANTICIPATED BARRIERS TO DISCHARGE:: None identified. TRANSPORTATION:: Via private vehicle with family. PLAN:: Suhail will return home when ready per MD. No additional services anticipated a this time. Suhail will follow up with his PCP and transport via private vehicle with family.
--- NOTE | 2018-04-02 16:06 | INITIAL_ITS ---
Care Management Initial Assess REASON FOR HOSPITALIZATION:: Pneumonia PAST MEDICAL HISTORY/PAST SURGICAL HISTORY:: Type 1 DM; insulin dependent. PREVIOUS FUNCTIONAL STATUS/SOCIAL/FAMILY SUPPORTS:: Suhail resides in [place], [place] with his significant other. 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 He is independent with all ADLs in the community and does not anticipate additional supports upon discharge. CURRENT FUNCTIONAL STATUS:: Suhail is sitting up in his chair when meets with him, he answers questions but is not overly forthcoming with information and presents with low affect. He reports feeling lousy and states he was told this was a bad case of pneumonia. He states the onset of symptoms started Monday night. ADVANCE DIRECTIVES:: None on file at [facility]. Has patient been provided with information about the portal?: No Did the patient sign up for the portal?: No CODE STATUS:: Full Code INSURANCE COVERAGE / FINANCIAL ISSUES:: [employer] CURRENT HOME/COMMUNITY SERVICES/EQUIPMENT:: Diabetic supplies. PRIMARY CARE PHYSICIAN:: Suhail Hauser; [facility]. POTENTIAL DISCHARGE NEEDS:: Follow up appointment with PCP. PATIENT/FAMILY EDUCATION NEEDS:: Review discharge instructions, discuss Ask Me Three. ANTICIPATED BARRIERS TO DISCHARGE:: None identified. TRANSPORTATION:: Via private vehicle with family. PLAN:: Suhail will return home when ready per MD. No additional services anticipated a this time. Suhail will follow up with his PCP and transport via private vehicle with family.
[2018-04-02] MEDS: Normal Saline 1,000 ML 150 ML IV (16:17)
[2018-04-02] MEDS: LEVOFLOXACIN 750 MG/150 ML BAG 150 MG IVPB (19:23)
[2018-04-02 20:31] LABS: Troponin I 0.53 ng/mL (0.00-0.06)
[2018-04-02] MEDS: Mylanta Suspension 30 ML CUP PO (21:40)
[2018-04-03] VITALS (10 sets, daily range): BP systolic 109–157; BP diastolic 66–101; PULSE 73–95; RESP 16–18; TEMP 36.6–38.6; O2SAT 93–96
[2018-04-03] MEDS: Acetaminophen 325 MG TAB PO ×4 (00:17→22:56)
[2018-04-03] MEDS: Normal Saline 1,000 ML 150 ML IV ×3 (00:17→13:55)
[2018-04-03] MEDS: Heparin 5,000 UNITS/ML VIAL 5000 UNITS SC ×3 (05:19→22:41)
[2018-04-03 07:52] LABS: Hemoglobin A1C 7.5 % (4.5-6.2); Troponin I 0.39 ng/mL (0.00-0.06)
[2018-04-03] MEDS: Insulin Aspart 300 UNITS/3 ML PEN SC ×5 (08:24→17:09)
[2018-04-03] MEDS: Pravastatin 40 MG TAB PO (08:24)
[2018-04-03] MEDS: Insulin Glargine 300 UNITS/3 ML PEN 30 UNITS SC ×2 (08:25→19:21)
[2018-04-03] MEDS: traMADol 50 MG TAB 100 MG PO ×2 (11:44→19:21)
--- NOTE | 2018-04-03 12:06 | PDOC.CMPRO ---
- If Service Date Differs Date of service: 04/03/18 Time of Service: 12:06 Care Management Progress Note S/O: Suhail is lying in bed when this medical underwriter visits with him. He is pleasant and open to conversation. Suhail continues to require telemetry monitoring at this time, as well as IV antibiotics. Suhail has also met with Diabetic Education during his hospitalization. CM reviewed DC plan which remains the same at this time. A: 27 y/o male admitted 04/01/18 for Pneumonia. P: Suhail will return home with no anticipated services once medically cleared. He will F/U with PCP and plan of care as prescribed. Suhail's family will transport when ready.
--- NOTE | 2018-04-03 12:35 | CMPROGNOTE_ITS ---
- If Service Date Differs Date of service: 04/03/18 Time of Service: 12:06 Care Management Progress Note S/O: Suhail is lying in bed when this short story writer visits with him. He is pleasant and open to conversation. Suhail continues to require telemetry monitoring at this time, as well as IV antibiotics. Suhail has also met with Diabetic Education during his hospitalization. CM reviewed DC plan which remains the same at this time. A: 27 y/o male admitted 04/01/18 for Pneumonia. P: Suhail will return home with no anticipated services once medically cleared. He will F/U with PCP and plan of care as prescribed. Suhail's family will transport when ready.
[2018-04-03] MEDS: Benzonatate 200 MG CAP PO ×2 (13:46→19:21)
--- NOTE | 2018-04-03 15:09 | PGE_ITS ---
Date of service: 04/03/18 Time of Service: 15:05 Assessment and Plan (1) Pneumonia: Current visit: Yes Status: Acute Clinically the patient is improving. Cough is improved and he has no fever nor any rigors. He is not requiring any supplemental oxygenation. I am going to switch him to oral Levaquin tonight and if he remains afebrile overnight he can be discharged home tomorrow. He will need another 10 days worth of oral antibiotics and follow-up chest x-ray in 2 weeks. (2) Elevated troponin: Current visit: Yes Status: Acute Dr. Hauser spoke [place]/ [facility] [place] when his troponin peaked at 0.53 and he obtained a follow up EKG. There were no ischemic changes on the EKG. [facility] sail lay out worker agreed w/ Dr. Hauser that the elevated troponins were probably d/t stress induced ischemia and recommended follow up stress MPI as an outpatient as long as his troponins declined overnight. I disagree and feel that he had a pericarditis/epicarditis. His repeat troponin this a.m. came down to 0.39. I will have the patient follow up w/ cardiology as an outpatient. I have ordered Parvovirus and Coxsackie virus studies to evaluate for myocarditis, however, given the rapidity his troponin has come down, I doubt myocarditis, furthermore his echo was normal. (3) Type I diabetes mellitus: Current visit: Yes Status: Chronic A1c is elevated at 7.5% however he says that the last time this was checked it was over 9%. His blood sugars are coming down. This morning his fasting glucose was 115 and the highest level today was up to 154. Continue Lantus 30 units twice a day as prescribed at home along with mealtime coverage as well as high-dose NovoLog corrective scale (4) Hypertension: Current visit: Yes Status: Chronic Blood pressures have been elevated today because he has been off his lisinopril. I will resume his lisinopril beginning this afternoon. (5) MICHELLE (acute kidney injury): Current visit: Yes Status: Acute Renal function has returned to baseline. I would discontinue his IV fluids however the patient still not eating and drinking enough. Subjective Interval history since last seen: Patient denies any chest pain or dyspnea. Cough is now non-productive. Low grade temp today of 38.3. Troponins are declining to 0.39. I plan to switch him to oral Levaquin and if no fevers overnight then dc home in the a.m. Exam Const General: cooperative, comfortable, no acute distress, well developed and well groomed Orientation: alert, awake and oriented x3 Resp Effort & Inspection: normal respiratory effort and able to speak in complete sentences Auscultation: clear to auscultation bilaterally Cardio Jugular venous pressure: no JVD Palpation: normal PMI Rate: regular rate Rhythm: regular rhythm Heart Sounds: S1 normal, S2 normal, normal, physiologic split S2, no gallops, no murmurs and no rubs Psych Appearance: grossly normal and well kempt Mental Status: mental status grossly normal Speech and Movement: speech and movement normal Mood: congruent mood Affect: normal affect Attitude: cooperative Thought Process: normal Thought Content: normal Insight: insight good Judgment: judgment good Objective Objective Clinical Data: Abnormal lab results 04/02/18 04/03/18 04/03/18 Range/Units 20:07 06:40 06:40 Hemoglobin A1c 7.5 H (4.5-6.2) % Troponin I 0.53 H 0.39 H (0.00-0.06) ng/mL Vital Signs Temp 38.3 C H 04/03/18 11:44 Pulse 76 04/03/18 11:17 Resp 18 04/03/18 11:17 BP 157/101 H 04/03/18 11:17 Pulse Ox 96 04/03/18 11:17 Intake & Output 04/02/18 04/03/18 04/03/18 23:59 11:59 23:59 Intake Total 1700 / 1700 1590 / 1590 1000 / 1000 Balance 1700 / 1700 1590 / 1590 1000 / 1000 Intake: IV 1000 / 1000 1000 / 1000 1000 / 1000 Oral 700 / 700 590 / 590 Other: Comment void x 1, reported feeling dizzy when standing up but subsided. Voiding Methods Toilet Toilet Laboratory Results WBC 11.06 k/cumm (4.4-10.8) H 04/02/18 06:20 RBC 4.46 m/cumm (4.50-6.00) L 04/02/18 06:20 Hgb 12.8 g/dL (13.5-17.5) L 04/02/18 06:20 Hct 37.4 % (40.0-50.0) L 04/02/18 06:20 MCV 83.9 fL (80-95) 04/02/18 06:20 MCH 28.7 pg (27.0-33.0) 04/02/18 06:20 MCHC 34.2 g/dL (32.0-36.0) 04/02/18 06:20 RDW 12.6 % (11.8-14.1) 04/02/18 06:20 Plt Count 223 x1000/uL (130-400) 04/02/18 06:20 MPV 10.4 fL (8.0-11.0) 04/02/18 06:20 Immature Gran % 0.2 04/02/18 06:20 Neutrophils % 78.4 04/02/18 06:20 Lymphocytes % 11.4 04/02/18 06:20 Monocytes % 9.6 04/02/18 06:20 Eosinophils % 0.0 04/02/18 06:20 Basophils % 0.4 04/02/18 06:20 Absolute Neutrophils 8.67 k/cumm (1.2-6.7) H 04/02/18 06:20 Absolute Lymphocytes 1.26 k/cumm (1.2-3.4) 04/02/18 06:20 Absolute Monocytes 1.06 k/cumm (0.11-0.7) H 04/02/18 06:20 Absolute Eosinophils 0.00 k/cumm (0.0-0.7) 04/02/18 06:20 Absolute Basophils 0.04 k/cumm (0.0-0.2) 04/02/18 06:20 Sodium 132 mmol/L (136-145) L 04/02/18 06:20 Potassium 4.3 mmol/L (3.5-5.1) 04/02/18 06:20 Chloride 97 mmol/L (98-107) L 04/02/18 06:20 Carbon Dioxide 22.6 mmol/L (21.0-32.0) 04/02/18 06:20 Anion Gap 12.4 mmol/L (3-11) H 04/02/18 06:20 BUN 39 mg/dL (7-18) H 04/02/18 06:20 Creatinine 1.67 mg/dL (0.70-1.30) H 04/02/18 06:20 Estimated GFR/1.73 m2 50.38 (mL/min/1.73m2) 04/02/18 06:20 Glucose 317 mg/dL (70-100) H 04/02/18 06:20 Hemoglobin A1c 7.5 % (4.5-6.2) H 04/03/18 06:40 Calcium 8.1 mg/dL (8.5-10.1) L 04/02/18 06:20 Magnesium 1.7 mg/dL (1.8-2.4) L 04/01/18 18:10 Total Bilirubin 0.7 mg/dL (0.2-1.0) 04/01/18 18:10 AST 30 U/L (15-37) 04/01/18 18:10 ALT 45 U/L (12-78) 04/01/18 18:10 Alkaline Phosphatase 83 U/L (46-116) 04/01/18 18:10 Troponin I 0.39 ng/mL (0.00-0.06) H 04/03/18 06:40 Total Protein 7.8 g/dL (6.4-8.2) 04/01/18 18:10 Albumin 3.4 g/dL (3.4-5.0) 04/01/18 18:10 Lipase 83 U/L (73-393) 04/01/18 18:10 Urine Color Yellow (Yellow) 04/01/18 19:35 Urine Clarity Clear 04/01/18 19:35 Urine pH 5.5 (5-8) 04/01/18 19:35 Ur Specific Clever 1.010 (1.005-1.025) 04/01/18 19:35 Urine Protein 30 mg/dL (Negative) H 04/01/18 19:35 Urine Ketones 40 mg/dL (Negative) H 04/01/18 19:35 Urine Blood Moderate (Negative) H 04/01/18 19:35 Urine Nitrite Negative (Negative) 04/01/18 19:35 Urine Bilirubin Negative (Negative) 04/01/18 19:35 Urine Urobilinogen 0.2 EU/dL (Up TO 0.2) 04/01/18 19:35 Ur Leukocyte Esterase Negative (Negative) 04/01/18 19:35 Urine RBC 3-5 (0-2) H 04/01/18 19:35 Urine WBC 0-2 HPF (0-5) 04/01/18 19:35 Ur Epithelial Cells Few HPF (Negative) 04/01/18 19:35 Urine Crystals HPF (Negative) 04/01/18 19:35 Urine Bacteria Rare HPF (Negative) 04/01/18 19:35 Urine Casts 0-2 hyaline LPF (Negative) 04/01/18 19:35 Urine Mucus Trace (Negative) 04/01/18 19:35 Ur Culture Indicated? No 04/01/18 19:35 Urine Glucose 500 mg/dL (Negative) H 04/01/18 19:35
[2018-04-03] MEDS: Lisinopril 20 MG TAB 40 MG PO (15:49)
--- NOTE | 2018-04-03 17:23 | PHARADMIT ---
Admission Pharmacy Clinical Review pneumonia Code Status Full Code Current Weight 104.326 kg Renally Cleared and Narrow Therapeutic Index Meds Crcl ~65.00 mL/min current meds okay QTc Value / Action Taken BP Control, Fever BP 125/72 Tmax 38.6 Electrolytes reviewed Na 132 Cl 97 mag 1.7 DVT Prophylaxis heparin Opiate Usage / Scheduled Bowel Regimen Ordered no/prn Plt/SCr for Heparin / Enoxaparin plt 223 SCr 1.67 INR for Warfarin n/a H/H stable, WBC/Bands h/h 12.8/37.4 wbc 11.06 Antibiotic appropriateness levofloxacin Cultures and Sensitivities blood cultures- no growth in 24 hours Surgical ABX d/c within 24 hr n/a DM control / Insulin Dosing FSBG 136 scheduled aspart and glargine; sliding scale aspart Heart Failure (Check EF%) (RAMEZ's, B-Block, Diuretics) lisinopril IV to PO Switch n/a Home Meds Reviewed yes Home Meds Not Ordered none Comments
[2018-04-03] MEDS: LEVOFLOXACIN 500 MG, LEVOFLOXACIN 250 MG 750 MG PO (19:25)
[2018-04-04 02:30] VITALS: TEMP 35.9
[2018-04-04] MEDS: Normal Saline 1,000 ML 75 ML IV (02:41)
[2018-04-04] MEDS: Heparin 5,000 UNITS/ML VIAL 5000 UNITS SC (06:07)
[2018-04-04 07:03] LABS: Abs Immature Grans 0.02 k/cumm (0.0-0.09); Absolute Basophil Count 0.04 k/cumm (0.0-0.2); Absolute Eosinophil Count 0.17 k/cumm (0.0-0.7); Absolute Lymphocyte Count 1.67 k/cumm (1.2-3.4); Absolute Monocyte Count 0.99 k/cumm (0.11-0.7); Absolute Neutrophil Count 5.47 k/cumm (1.2-6.7); Basophils % 0.5; HCT 40.3 % (40.0-50.0); HGB 13.8 g/dL (13.5-17.5); Immature Grans % 0.2; Mean Corp. HGB Concentration 34.2 g/dL (32.0-36.0); Mean Corpuscular Hemoglobin 28.7 pg (27.0-33.0); Mean Corpuscular Volume 83.8 fL (80-95); Mean Platelet Volume 10.1 fL (8.0-11.0); Monocytes % 11.8; Neutrophils % 65.5; Platelet Count 224 x1000/uL (130-400); RBC 4.81 m/cumm (4.50-6.00); RBC Distribution Width 12.7 % (11.8-14.1); White Blood Cell Count 8.36 k/cumm (4.4-10.8)
[2018-04-04 07:21] LABS: Anion Gap 9.5 mmol/L (3-11); BUN 16 mg/dL (7-18); CO2 28.5 mmol/L (21.0-32.0); CREATININE 1.21 mg/dL (0.70-1.30); Calcium 8.6 mg/dL (8.5-10.1); Chloride 98 mmol/L (98-107); Glucose 93 mg/dL (70-100); Potassium 3.6 mmol/L (3.5-5.1); Sodium 136 mmol/L (136-145)
[2018-04-04 07:34] LABS: NT-proBNP 655 pg/mL
[2018-04-04 07:35] LABS: Troponin I 0.24 ng/mL (0.00-0.06)
[2018-04-04 07:38] VITALS: PULSE 76
[2018-04-04 08:17] VITALS: BP 141/81; PULSE 85; RESP 20; TEMP 38; O2SAT 97
[2018-04-04 08:47] VITALS: TEMP 38
[2018-04-04] MEDS: Lisinopril 20 MG TAB 40 MG PO (08:47)
[2018-04-04] MEDS: Acetaminophen 325 MG TAB PO (08:47)
[2018-04-04] MEDS: Pravastatin 40 MG TAB PO (08:47)
[2018-04-04] MEDS: Benzonatate 200 MG CAP PO (08:48)
[2018-04-04] MEDS: Insulin Aspart 300 UNITS/3 ML PEN SC ×2 (08:48→12:16)
[2018-04-04] MEDS: Insulin Glargine 300 UNITS/3 ML PEN 30 UNITS SC (08:48)
[2018-04-04] MEDS: traMADol 50 MG TAB 100 MG PO (08:49)
[2018-04-04 09:30] VITALS: TEMP 37.5
--- NOTE | 2018-04-04 11:18 | DM INPTCON_ITS ---
DESCRIPTION/ASSESSMENT: Met with Suhail for follow up on diabetes management. New A1c 7.5 Blood sugars have been well managed less than 180mg/dl over the past 24 hours taking his usual basal insulin and insulin:carb dosages. He states he did still have a fever overnight and thus will not be discharged imminently. Suhail states he has about 3 hypoglycemic episodes per month, usually during the day; possibly due to inaccurate carbohydrate counting. He reports some neuropathy in his feet and some eye damage. He denies having seen an garment supervisor. Suhail reports blood sugars in 300s for 5 days a few weeks ago. He did not feel sick or stressed. Insulin correction did not bring blood sugars close to control. He changed insulin pens. He wonders if this will affect his A1c. INTERVENTION: Given his well controlled blood sugars yesterday, no suggestion for insulin change. Reviewed hypoglycemia treatment; foot care. He has an eye appointment in the next month or so. Discussed current technology with diabetes including CGM and insulin pump. Described trial CGM option and possible benefits. Reviewed A1c results. PLAN: He will continue current insulin regimen. He will consider trial Professional CGM for 1 week and discuss with his PCP. He has our contact information if he wishes to follow up.
--- NOTE | 2018-04-04 12:05 | DSE_ITS ---
DS: Diagnosis Discharge Diagnosis (1) Pneumonia: Status: Acute Asessment and Plan: Patient's pneumonia responded to IV Levaquin and was then switched to oral Levaquin. He was on the parenteral form of antibiotics from April 01 - April 02, 2018 and then switch to oral Levaquin on the evening of April 03, 2018. His cough was treated with Tessalon Perles and was given tramadol for his pleuritic chest discomfort. Follow-up chest x-ray will be needed upon completion of his antibiotics (2) Elevated troponin: Status: Resolved Asessment and Plan: Patient had a transient rise in his troponin up to 0.5 and then declined down to 0.26. Serial EKGs failed to show any ischemic ST T-wave changes. Echocardiogram demonstrated normal left ventricular function with no pericardial effusion and no valvular heart disease. It is recommended a follow-up with cardiology for further recommendations. Outstanding studies include parvovirus studies as well as coxsackievirus studies (3) Type I diabetes mellitus: Status: Chronic Asessment and Plan: Patient's diabetes is been under less than optimal control as evidenced by an elevated A1c greater than 7%. His diabetes was controlled with resumption of his home dose of Lantus as well as NovoLog sliding scale for correction of elevated blood sugars as well as addition of NovoLog for carbohydrate coverage. It is recommended that his primary care provider work closely with the patient to improve his glycemic control to prevent future diabetic complications. He may benefit from referral to smoke and flame specialist (4) Hypertension: Status: Chronic Asessment and Plan: On admission the patient's lisinopril was withheld because of borderline low blood pressures and acute kidney injury. However with IV fluid hydration acute kidney injury resolved as lisinopril was restarted. His blood pressure should be closely monitored and medication should be adjusted according to recommendations from the joint committee on kidney disease and hypertension (5) MICHELLE (acute kidney injury): Status: Resolved Asessment and Plan: His acute kidney injury was felt to be secondary to dehydration brought on by his pneumonia. He had resolution of his elevated BUN and creatinine with IV fluid hydration. At this time he is back to his baseline but renal function needs to be monitored as per recommendations from [employer] [employer] Discharge Plan Disposition Patient Disposition: HOME Condition: Improving Discharge Details Chief Complaint: Nausea/Vomit/Diar Reason For Visit: PNEUMONIA, abnormal troponin Admit Date/Time: 04/01/18 20:35 Admit Provider: David Hauser Attending Provider: David Hauser Primary Care Provider: KRISH FORTE ED Provider: Ayana Boyle [facility] Course Hospital Course: This 27-year-old male with a history of type 1 diabetes mellitus, essential hypertension presented emergency department with complaints of fever cough and pleuritic chest pain. Symptoms began 2 days prior to admission. Evaluation included chest x-ray that showed a left lingular infiltrate labs showed mild hyponatremia that corrected to a level 133. He had acute renal insufficiency with elevated BUN and creatinine to a size 46 and 1.74 That corrected to 16 and 1.21 respectively after fluid hydration. He was found to have a mild elevation troponin 0.08 which later robbie to as high as 0.5 before declining to discharge level of 0.24. Serial EKGs were obtained and no acute ischemic changes were seen. Echocardiogram was performed and showed normal left ventricular function with no wall motion abnormalities and no significant valvular heart disease. Furthermore no pericardial effusion was seen. Pleuritic chest pain responded to tramadol. He was initially treated with IV Levaquin after obtaining blood cultures. Sputum culture was never obtained. His initial leukocytosis of 11,000 came down to normal levels of 8360. Blood cultures came back no growth ?2 sets from admission. Patient's oxygenation and fevers improved with IV Levaquin 750 mg IV daily. He was maintained on this from April 01 until he is switch to oral Levaquin on April 03, 2018. On the morning of discharge she had a low-grade temp of 38.0 but otherwise was doing well. Patient is instructed to continue on another 10 days of Levaquin 750 mg orally. He is also advised to follow-up with cardiology regarding his transient elevation of his troponin levels. The night hospitalist Dr. Hauser who admitted the patient had contacted [facility]'s fixer supervisor director medical economics and reviewed all of his EKGs with the fixer supervisor. The fellow agree with Dr. Hauser's assessment that the patient was having type II demand ischemic precipitated by his pneumonia. I reviewed the EKG 's and do not feel that there is any ischemia however there is some suggestion of repolarization changes diffusely. reeling machine operator recommended to Dr. Hauser that the patient have a follow-up stress MPI after resolution of his pneumonia. Patient has no history of exertional anginal symptoms. It is my opinion that the patient probably had an appendectomy pericarditis secondary to the lingular infiltrate. His echocardiogram did not show any pericardial effusion. I did order test to rule out myocarditis including parvovirus and coxsackievirus studies which are pending at this time. However given his normal left ventricular function was echocardiogram and resolution of his troponin levels I do not feel that there is a need for any acute intervention but simply a follow-up with biomedical engineering professor to ensure that he does not develop complications. Home Meds and New Rx's Prescriptions: New benzonatate 200 mg capsule 200 mg PO TID PRN (Reason: cough) Qty: 30 RF: 0 levofloxacin 750 mg tablet 750 mg PO DAILY Qty: 10 RF: 0 tramadol 50 mg tablet 50 mg PO Q6H PRN (Reason: pain) Qty: 20 RF: 0 Continue insulin glargine [Lantus Solostar U-100 Insulin] 100 UNIT/1 ML insulin pen BID RF: 0 insulin aspart U-100 [Novolog Flexpen U-100 Insulin] 100 UNIT/1 ML insulin pen 100 unit SQ RF: 0 pravastatin 40 MG tablet 40 mg PO DAILY Qty: 1 RF: 0 lisinopril 40 mg Tablet 40 mg PO DAILY RF: 0 Discharge Instructions Instructions: Acute Kidney Injury (DC), Acute Pericarditis (DC), Bacterial Pneumonia (DC) Additional Instructions: Off work for the next week. Get a follow-up chest x-ray in 2 weeks. See her primary care provider within the next week Referrals: CARDIOLOGY,[facility] [OTHER] - 04/06/18 10:30 am KRISH FORTE [Primary Care Provider] - 04/19/18 8:00 am Andrae Whitehead MD [MD CONSULTING PHYSICIAN] - (Call specialty clinic at [facility] for a follow-up appointment in the next for 6 weeks) Print Language: Zambian Activity:: Activity as Tolerated Equipment/Supplies:: No Equipment Needed Diet:: Diabetic Discharge Orders Discharge Orders: Discharge Order (Routine); Ordered 04/04/18 Ordered By: Gustavo Heath Ambulatory Orders: XR chest 2V PA & lateral (Routine) Timeframe: 2 Weeks Facility: [facility] - Location: DIAGNOSTIC IMAGING DEPT Ordered By: Gustavo Savage DS: Summary Status at Discharge Functional status at discharge: independent ambulation Time Spent with Patient Less than 30 minutes Exam Const General: cooperative, healthy appearing and no acute distress Nutritional Appearance: overweight Orientation: alert, awake and oriented x3 Resp Effort & Inspection: normal respiratory effort and able to speak in complete sentences Auscultation: clear to auscultation bilaterally Cardio Jugular venous pressure: no JVD Palpation: normal PMI Rate: regular rate Rhythm: regular rhythm Heart Sounds: S1 normal, S2 normal, normal, physiologic split S2, no gallops, no murmurs and no rubs Neuro General: alert, awake, oriented x3, moves all extremities and no focal motor deficits Cognition: normal cognition Speech: speech normal Gait: normal gait Motor: muscle tone normal throughout and strength 5/5 throughout Psych Appearance: grossly normal Mental Status: mental status grossly normal Speech and Movement: speech and movement normal Mood: congruent mood Affect: normal affect Attitude: cooperative Thought Process: normal Thought Content: normal Insight: insight good Judgment: judgment good DS: Data Vitals/I&O Vitals and I&O: Vital Signs Temp 37.5 C 04/04/18 09:30 Pulse 85 04/04/18 08:17 Resp 20 04/04/18 08:17 BP 141/81 H 04/04/18 08:17 Pulse Ox 97 04/04/18 08:17 Intake & Output 04/03/18 04/04/18 04/04/18 23:59 11:59 23:59 Intake Total 1949 1510.75 / 1510.75 Balance 1949 1510.75 / 1510.75 Intake: IV 1400 / 1400 893.75 / 893.75 Oral 550 / 550 617 / 617 Other: Urine Color Yellow Urine Appearance Clear Comment voiding independently. pt has voided X3 this shift Voiding Methods Toilet Toilet Completed studies during hospitalization [Text1]: Patient Name: KRISH DELGADILLONickamanda #: [id number]: MS Ordering Provider: Ayana Boyle #: [id number]: ADM IN Primary Care Provider: KRISH FORTE Date of Exam: 04/01/18ex: M Admission Date: 04/01/18 : 1990 Age: 27 Exam(s) a RAD:XR chest 2V PA & lateral SYMPTOM/DIAGNOSIS: COUGH PA AND LATERAL CHEST: No priors. Heart size and pulmonary vasculature are within normal limits. There is an air space opacity in the left lingula. The lungs are otherwise clear. No effusions or pneumothoraces are identified. There is a side plate and screws in the right clavicle. There are mild degenerative changes seen in the spine. IMPRESSION: Left lingular pneumonia. Ordered By: Ayana Boyle CC: Dictated By: Augustine De Luna M.D. 04/02/18 0921 <Electronically signed by Augustine De Luna M.D.> 04/02/18 1536 Transcribed By: Gracie Dye 04/02/18 1053 Patient Name: KRISH DELGADILLOUnit #: [id number]: MS Ordering Provider: David Hauser M.D. : ADM IN Primary Care Provider: KRISH FORTE Date of Exam: 04/02/18ex: Gualberto : 1990Age: 27 Exam(s) a US:US echocardiogram *[facility]* *[facility]* [address] [place] [address] Date of study: 04/02/2018 Transthoracic Echocardiography M-mode, complete 2D, complete spectral Doppler, and color Doppler *STUDY CONCLUSIONS* Summary: 1. Left ventricle: The cavity size was normal. Wall thickness was normal. Systolic function was normal. The estimated ejection fraction was 60-65%. Wall motion was normal; there were no regional wall motion abnormalities. Diastolic parameters were normal. 2. Right ventricle: The cavity size was normal. Wall thickness was normal. Systolic function was normal. Pending studies at discharge: Viral studies for coxsackievirus as well as parvovirus B19 Labs on day of discharge: Labs from last 24 hours 04/04/18 04/04/18 04/04/18 06:20 06:20 06:20 WBC 8.36 RBC 4.81 Hgb 13.8 Hct 40.3 MCV 83.8 MCH 28.7 MCHC 34.2 RDW 12.7 Plt Count 224 MPV 10.1 Immature Gran % 0.2 Neutrophils % 65.5 Lymphocytes % 20.0 Monocytes % 11.8 Eosinophils % 2.0 Basophils % 0.5 Absolute Neutrophils 5.47 Absolute Lymphocytes 1.67 Absolute Monocytes 0.99 H Absolute Eosinophils 0.17 Absolute Basophils 0.04 Sodium 136 Potassium 3.6 Chloride 98 Carbon Dioxide 28.5 Anion Gap 9.5 BUN 16 D Creatinine 1.21 Estimated GFR/1.73 m2 >= 60.00 Glucose 93 D Calcium 8.6 Troponin I 0.24 H NT-Pro-B Natriuret Pep 655 H Miscellaneous Test 04/03/18 17:00 WBC RBC Hgb Hct MCV MCH MCHC RDW Plt Count MPV Immature Gran % Neutrophils % Lymphocytes % Monocytes % Eosinophils % Basophils % Absolute Neutrophils Absolute Lymphocytes Absolute Monocytes Absolute Eosinophils Absolute Basophils Sodium Potassium Chloride Carbon Dioxide Anion Gap BUN Creatinine Estimated GFR/1.73 m2 Glucose Calcium Troponin I NT-Pro-B Natriuret Pep Miscellaneous Test Pending Preliminary micro results at discharge 04/01/18 19:42 Blood Culture - Preliminary Blood NO GROWTH 48 HOURS 04/01/18 19:18 Blood Culture - Preliminary Blood NO GROWTH 48 HOURS
--- NOTE | 2018-04-04 12:41 | PDOC.CMDIS ---
LACE Index Scoring Tool - Questions: Length of Stay (in days): 4 - 6 Acuity (Admit via E.D.?): Yes Comorbidities: Diabetes w/o Complication E.D. Visits: 1 - Answers: Total Score: 9 Risk of Readmission: Low Risk Care Management Discharge Reason for Hospitalization: Pneumonia Discharge Plan: Suhail will return home when ready per MD. No additional services anticipated a this time, he met with Areli Kinney; Paper Bag Press Operator and will discuss next steps of diabetic management with his PCP. Suhail will follow up with his PCP and transport via private vehicle with family. Patient/Family Education Needs: Review discharge instructions, discuss Ask Me Three.
[2018-04-04 14:45] VITALS: PULSE 72
--- NOTE | 2018-04-04 15:15 | CHAPLAIN ---
Suhail was sitting up in his chair looking out the window when I visited. He was pleasant. I explained my role and offered support. He said he may be discharged today, he is waiting to hear.
[2018-04-05 16:43] LABS: Parvovirus B19 By Rapid PCR, P Negative; Source PLASMA
[2018-04-10 08:50] LABS: Parvovirus B19 Ab, IgG Positive (Negative); Parvovirus B19 Ab, IgM Negative (Negative)
== END 2018-04-04 16:49 | disposition home or self-care (01) | DRG 194 ==
LOC: ER 20:57 → MS 04-02 13:59
PROVIDERS: Admitting Provider Internal Medicine; Emergency Provider Physician Assistant; PCP Internal Medicine; Visit Provider Internal Medicine
DX: J18.9 Pneumonia, unspecified organism (principal); N17.9 Acute kidney failure, unspecified; E87.1 Hypo-osmolality and hyponatremia; R74.8 Abnormal levels of other serum enzymes; E86.1 Hypovolemia; E87.8 Other disorders of electrolyte and fluid balance, not elsewhere classified; E10.9 Type 1 diabetes mellitus without complications; Z79.4 Long term (current) use of insulin; I10 Essential (primary) hypertension; E78.5 Hyperlipidemia, unspecified
CPT/HCPCS: 36415; 36416; 80048; 80053; 82962; 83690; 87040; 87798; 93005; 96361; 96365; 96375; 99223; 99232; 99239; 99285; 71046; 81003; 81015; 83036; 83735; 83880; 84484; 85025; 86747; 93010; 93306; J1644; J1956; J2405; J2765; J3475

== ENCOUNTER 2018-04-19 00:30 | Outpatient (CLI) | payer OTHER, SELFPAY ==
--- NOTE | 2018-04-19 14:37 | DI.RAD_ITS ---
SYMPTOMS/DIAGNOSIS: F/U PNEUMONIA, J18.9 CHEST X-RAY, PA AND LATERAL: Comparison is 04/01/18. The left lingular pneumonia has resolved. The lungs are clear. No effusions or pneumothoraces are identified. The heart size and pulmonary vasculature are within normal limits. Mild degenerative changes are seen in the spine. IMPRESSION: No acute pulmonary process. Interval resolution of the left lingular pneumonia.
== END 2018-04-19 00:50 ==
PROVIDERS: PCP Internal Medicine; Visit Provider Internal Medicine
DX: J18.9 Pneumonia, unspecified organism (principal)
CPT/HCPCS: 71046

== ENCOUNTER 2018-05-03 00:23 | Outpatient (CLI) | payer OTHER, SELFPAY ==
--- NOTE | 2018-05-03 13:00 | ETT_ITS ---
*[facility]* *[facility]* [address] [place] [address] Stress Electrocardiography Dm protocol Date of study: 05/03/2018 *PATIENT PRESENTATION* Height: 172.7cm (68in) Blood Pressure: Weight: 104.5kg (230lb) BSA: 2.28m^2 Ordering physician: Talat Plascencia Impressions: Normal study after maximal exercise. Summary: 1. Stress ECG conclusions: Cabezas treadmill score: 11. This score predicts a low risk of cardiac events. 2. Stress: The target heart rate was achieved. Indication: R07.9. History: Patient's presenting symptoms: asymptomatic. REASON FOR VISIT: PATIENT ADMITTED TO HOSPITAL 04/01/18 FOR PNEUMONIA AND ELEVATED TROPONINS (UP TO 0.5). NO [address] SEGMENT CHANGES NOTED ON EKGS. COMPAINTS OF PLEURITIC CHEST PAIN DURING ADMISSION WERE RESOLVED WITH TRAMADOL. PATIENT FOLLOWING UP WITH [facility] WHO SUGGESTS TREADMILL EXERCISE STRESS TEST. TODAY PATIENT REPORTS INTERMITTENT DULL ACHE SENSATION OVER LEFT CHEST WALL OVER THE PAST FEW WEEKS, ONSET AND DURATION VARIABLE. 03/1718 ECHOCARDIOGRAM: EJECTION FRACTION 60-65%. NORMAL RESULTS. PAST MEDICAL HISTORY: TYPE 1 DIABETES MELLITUS. ESSENTIAL HYPERTENSION. HYPERLIPIDEMIA. FAMILY HISTORY: FATHER - HYPERTENSION, HYPERLIPIDEMIA. SMOKING STATUS: OCCASIONAL CIGAR. EXERCISE ROUTINE: NONE. Risk factors: Hypertension. Diabetes mellitus. Dyslipidemia. Cholesterol: 347mg/dl. HDL: 34mg/dl. LDL: 164mg/dl. Triglycerides: 687mg/dl. ALLERGIES: NO KNOWN ALLEGIES. MEDICATIONS: INSULIN ASPART 1UNIT/5CARBS. INSULIN GLARGINE 30 UNITS BID. LISINOPRIL 40MG, DAILY. PRAVASTATIN 40MG, DAILY. TRAMADOL 50MG, PRN. Protocol: Dm protocol. Baseline ECG: SINUS RHYTHM. SLIGHT J POINT ELEVATION NOTED IN LEADS II, AVF, V2, V3, AND V4. HEART RATE 78 BPM. Stress protocol: + +---+ + !Stage !HR !BP (mmHg) ! + +---+ + !Baseline supine !78 !160/84 (109) ! + +---+ + !Baseline standing !78 !158/80 (106) ! + +---+ + !Stage I; 1.7mph, 10degrees; 3 min !113!184/86 (119) ! + +---+ + !Stage II; 2.5mph, 12degrees; 3 min !130!188/86 (120) ! + +---+ + !Stage III; 3.4mph, 14degrees; 3 min!160!200/106 (137)! + +---+ + !Peak stress !174! ! + +---+ + !Recovery; 1 min !150!180/82 (115) ! + +---+ + !Recovery; 3 min !103!158/62 (94) ! + +---+ + !Recovery; 6 min !99 !132/76 (95) ! + +---+ + * Stress results: Maximal heart rate during stress was 174bpm (89% of maximal predicted heart rate). The maximal predicted heart rate was 195bpm. The target heart rate was achieved. The rate-pressure product for the peak heart rate and blood pressure was 75283sp Hg/min. Stress ECG: TREADMILL PORTION OF EXERCISE STRESS TEST ENDED IN 10MIN 27 SEC DUE TO PATIENT FATIGUE. APPROPRIATE HEART RATE AND BLOOD PRESSURE RESPONSE TO EXERCISE. HYPOTENSIVE RESPONSE TO IMMEDIATE CESSATION OF EXERCISE, ASYMPTOMATIC. MAXIMAL HEART RATE 174 BPM, 89% OF TARGET. APPROXIMATE METS ACHIEVED 12.54. NO ANGINA REPORTED. NO ECTOPY NOTED. NO SIGNIFICANT ST SEGMENT CHANGES NOTED. MILDLY DIMINISHED FUNCTIONAL CAPACITY. Cabezas treadmill score: 11. This score predicts a low risk of cardiac events. Study data: Andrae Whitehead MD supervised and was readily available during the procedure. This study was interpreted by [facility]. Study status: Routine. Consent: The risks, benefits, and alternatives to the procedure were explained to the patient and informed consent was obtained. Procedure: Initial setup. A baseline ECG was recorded. Surface ECG leads and manual cuff blood pressure measurements were monitored. Heart sounds: Normal. Lung sounds: Normal. Treadmill exercise testing was performed using the Dm protocol. Study completion: The patient tolerated the procedure well and was discharged from the lab. Discharge: The patient left the laboratory in stable condition. Birthdate: Patient birthdate: 1990. Sex: Gender: male. Study date: Study date: 05/03/2018. Study time: 01:00 PM. Signature Documentation: The Stress ECG portion of this study was interpreted by Andrae Whitehead MD. Electronically signed by Andrae Whitehead 05/03/2018 14:34
== END 2018-05-03 00:43 ==
PROVIDERS: PCP Internal Medicine; Visit Provider Internal Medicine Cardiovascular Disease
DX: R07.9 Chest pain, unspecified (principal); I10 Essential (primary) hypertension; E78.5 Hyperlipidemia, unspecified; E11.9 Type 2 diabetes mellitus without complications; Z79.4 Long term (current) use of insulin
CPT/HCPCS: 93017

== ENCOUNTER 2018-07-28 00:19 | Outpatient (CLI) | payer OTHER, SELFPAY ==
[2018-07-28 10:17] LABS: Abs Immature Grans 0.01 k/cumm (0.0-0.09); Absolute Basophil Count 0.04 k/cumm (0.0-0.2); Absolute Eosinophil Count 0.19 k/cumm (0.0-0.7); Absolute Lymphocyte Count 2.17 k/cumm (1.2-3.4); Absolute Monocyte Count 0.54 k/cumm (0.11-0.7); Absolute Neutrophil Count 2.92 k/cumm (1.2-6.7); Basophils % 0.7; Eosinophils % 3.2; HCT 44.3 % (40.0-50.0); HGB 14.6 g/dL (13.5-17.5); Immature Grans % 0.2; Mean Corpuscular Hemoglobin 28.2 pg (27.0-33.0); Mean Corpuscular Volume 85.7 fL (80-95); Mean Platelet Volume 9.9 fL (8.0-11.0); Monocytes % 9.2; Neutrophils % 49.7; Platelet Count 320 x1000/uL (130-400); RBC 5.17 m/cumm (4.50-6.00); RBC Distribution Width 13.2 % (11.8-14.1); White Blood Cell Count 5.87 k/cumm (4.4-10.8)
[2018-07-28 11:24] LABS: ALT 88 U/L (12-78); AST 32 U/L (15-37); Albumin 4.1 g/dL (3.4-5.0); Alkaline Phosphatase 86 U/L (46-116); Anion Gap 9.4 mmol/L (3-11); BUN 32 mg/dL (7-18); Bilirubin, Total 0.5 mg/dL (0.2-1.0); CO2 25.6 mmol/L (21.0-32.0); CREATININE 1.28 mg/dL (0.70-1.30); Calcium 9.6 mg/dL (8.5-10.1); Chloride 103 mmol/L (98-107); Cholesterol 201 mg/dL (50-200); Glucose 119 mg/dL (70-100); HDL Cholesterol 48 mg/dL (40-60); LDL CHOLESTEROL 126 mg/dL (<100); Potassium 4.6 mmol/L (3.5-5.1); Sodium 138 mmol/L (136-145); Total Protein 7.6 g/dL (6.4-8.2); Triglyceride 128 mg/dL (30-150)
[2018-07-30 06:32] LABS: Hemoglobin A1C 7.8 % (4.5-6.2)
== END 2018-07-28 00:39 ==
PROVIDERS: PCP Internal Medicine; Visit Provider Internal Medicine
DX: Z00.00 Encounter for general adult medical examination without abnormal findings (principal); E10.9 Type 1 diabetes mellitus without complications; Z13.228 Encounter for screening for other metabolic disorders; Z13.29 Encounter for screening for other suspected endocrine disorder; Z13.220 Encounter for screening for lipoid disorders
CPT/HCPCS: 36415; 80053; 80061; 83721; 83036; 84443; 85025